=== PATIENT | male | born 1980 | race Caucasian/White ===

== ENCOUNTER 2017-11-16 23:31 | Emergency (ER) | payer OTHER, BC ==
[~2017-11-16] VITALS: Ht 180.3 cm; Wt 74.5 kg
[~2017-11-16 23:31] MED LIST: NAPROXEN500 MG PO
[2017-11-17] MEDS ORDERED: FLEXERIL10 MG PO (01:54)
[2017-11-17] MEDS ORDERED: NAPROSYN500 MG PO (01:54)
[2017-11-17] MEDS ORDERED: LIDODERM 5% P1 PATCH TD (01:54)
[2017-11-17 02:22] VITALS: BP 111/74
== END 2017-11-17 02:23 | disposition home or self-care (01) ==
LOC: EME 23:31
DX: S16.1XXA Strain of muscle, fascia and tendon at neck level, initial encounter (principal); S39.012A Strain of muscle, fascia and tendon of lower back, initial encounter; S46.911A Strain of unspecified muscle, fascia and tendon at shoulder and upper arm level, right arm, initial encounter; V49.40XA Driver injured in collision with unspecified motor vehicles in traffic accident, initial encounter; Y92.410 Unspecified street and highway as the place of occurrence of the external cause; F17.200 Nicotine dependence, unspecified, uncomplicated
CPT/HCPCS: 72100; 73030; 99281; 99284